=== PATIENT | female | born 1990 | race Caucasian/White ===

== ENCOUNTER → 2023-09-21 13:57 | Outpatient (REF) | payer OTHER, SELFPAY | LOC: PNTC 13:57 | PROVIDERS: ATTENDING PHYSICIAN Obstetrics & Gynecology | DX: O24.419 Gestational diabetes mellitus in pregnancy, unspecified control (principal) | CPT/HCPCS: 76816 ==

== ENCOUNTER → 2023-10-04 11:52 | Outpatient (REF) | payer OTHER, SELFPAY ==
--- NOTE | 2023-10-04 12:07 | PN.DIAED06 ---
Meal Plan - Gestational
- Breakfast
Gestational Diabetes Meal Plan Name: 1800 calories
Breakfast - Total Carbohydrate (grams): 30
Breakfast - Starch Carbohydrate: 1
Breakfast - Fruit Carbohydrate: 0
Breakfast - Milk Carbohydrate: 1
Breakfast - Nonstarchy Vegetables: Yes
Breakfast - Meat/Protein: 1
Breakfast - Fat: 2
- Morning Snack
Morning Snack - Total Carbohydrate (grams): 30
Morning Snack - Starch Carbohydrate: 1
Morning Snack - Fruit Carbohydrate: 0
Morning Snack - Milk Carbohydrate: 1
Morning Snack - Nonstarchy Vegetables: Yes
Morning Snack - Meat/Protein: 0.5
Morning Snack - Fat: 0
- Lunch
Lunch - Total Carbohydrate (grams): 45
Lunch - Starch Carbohydrate: 2
Lunch - Fruit Carbohydrate: 1
Lunch - Milk Carbohydrate: 0
Lunch - Nonstarchy Vegetables: Yes
Lunch - Meat/Protein: 2
Lunch - Fat: 1
- Afternoon Snack
Afternoon Snack - Total Carbohydrate (grams): 30
Afternoon Snack - Starch Carbohydrate: 1
Afternoon Snack - Fruit Carbohydrate: 1
Afternoon Snack - Milk Carbohydrate: 0
Afternoon Snack - Nonstarchy Vegetables: Yes
Afternoon Snack - Meat/Protein: 1
Afternoon Snack - Fat: 0
- Dinner
Dinner - Total Carbohydrate (grams): 45
Dinner - Starch Carbohydrate: 2
Dinner - Fruit Carbohydrate: 0
Dinner - Milk Carbohydrate: 1
Dinner - Nonstarchy Vegetables: Yes
Dinner - Meat/Protein: 2
Dinner - Fat: 2
- Evening Snack
Evening Snack - Total Carbohydrate (grams): 30
Evening Snack - Starch Carbohydrate: 1
Evening Snack - Fruit Carbohydrate: 0
Evening Snack - Milk Carbohydrate: 1
Evening Snack - Nonstarchy Vegetables: Yes
Evening Snack - Meat/Protein: 1
Evening Snack - Fat: 1
--- NOTE | 2023-10-04 13:38 | PN.DIAED02 ---
Referral
DSME Class Series Code: GDM
Referred For: Gestational Diabetes Self-Management Training, Management of Diabetes During , Self-Blood Glucose Monitoring
PHI Release Authorization Form Signed: Yes
Patient Problems:
Current Active Problems
Problem Status Onset
Gestational diabetes mellitus in , unspecified control ~09/07/23
Demographic
(1) Gestational diabetes mellitus in , unspecified control
Status: Acute Onset Date: ~09/07/23
Qualifiers:
Gestational diabetes mellitus control: diet-controlled Trimester: third trimester Qualified Code(s): O24.410 - Gestational diabetes mellitus in , diet controlled
Code(s): O24.419 - Gestational diabetes mellitus in , unspecified control
Patient's primary language-: Citizen Of [place]
Education: College degree
Glycemic Control
- Blood Glucose Monitoring Assessment
Date: 10/04/23
Blood glucose monitoring at home: Yes (72)
Monitor Brands: OneTouch
Frequency: 4x per day
Time: fasting, after breakfast, after lunch, after dinner
Patient uses Alternate Site Testing: No
Self-Care
- Tobacco Usage
Do you now, or have you ever smoked?: Never smoked
- Alcohol & Drugs Usage
Drinks Alcohol: No
Uses Recreational Drugs: No
- Physical Activity
Activity Types: walking
Duration: 21-30 minutes
Frequency: 3-5x per week
Intensity: Easy
Care Plan
- Education Needs
Patient Education Needs: Monitoring, Physical activity, Nutritional management, Preconception care//gestational diabetes management
Recommended Diabetes Training Program based on assessment: Gestational Diabetes Management
- Plan of Care
Plan of Care:
Met with Ms. Cleveland today, , currently at 34 weeks of gestation, here today for medical nutrition therapy.
Explained glucose metabolism in body and what occurs during to cause increase blood sugar. Discussed importance of keeping BS well controlled to avoid complications to the baby during and after (macrosomia, hypoglycemia). Explained
to Sumi that she is at increased risk of developing T2DM in the future. Sumi states that she has been more cognisant of what she eats since dx of GDM.
Provided Sumi with a glucose monitor-OneTouch. Reviewed proper testing technique, testing sites and testing pattern. She is aware to test FBS and 2 hr pp each meal. Expected results for FBS <95 mg/dl and 2 hr pp <120 mg/dl.
Provided with 1800 adilene GDM meal plan. She was educated on how to read a nutritional fact label and look at total CHO in relation to serving size. No fruit or fruit juice until noontime. Provided with handout on snacks as well as 'Choose Your Foods'
booklet. A Log sheet was provided for her to record results, she will send her 4 day meal log with all her FBG and 2hr Post prandial glucose numbers to this office for review. In addition, she will send all her glucose readings to Lisha at [place]
every Tuesday. She was encouraged to keep a regular activity schedule and will reach out should she require insulin.
A script for OneTouch test strips and Lancets was sent to [facility] in [place].
== END ==
LOC: DES 11:52
PROVIDERS: ATTENDING PHYSICIAN Obstetrics & Gynecology; FAMILY PHYSICIAN Family Medicine
DX: O24.419 Gestational diabetes mellitus in pregnancy, unspecified control (principal)
CPT/HCPCS: 99078

== ENCOUNTER → 2023-10-18 12:08 | Outpatient (REF) | payer OTHER, SELFPAY | LOC: PNTC 12:08 | PROVIDERS: ATTENDING PHYSICIAN Obstetrics & Gynecology | DX: O24.419 Gestational diabetes mellitus in pregnancy, unspecified control (principal) | CPT/HCPCS: 76816 ==

== ENCOUNTER → 2023-11-17 12:09 | Outpatient (REF) | payer OTHER, SELFPAY | LOC: PNTC 12:09 | PROVIDERS: ATTENDING PHYSICIAN Obstetrics & Gynecology | DX: O24.419 Gestational diabetes mellitus in pregnancy, unspecified control (principal) | CPT/HCPCS: 76816 ==

== ENCOUNTER 2023-11-21 03:02 | Inpatient (IN) | payer OTHER, SELFPAY ==
[2023-11-21 03:44] LABS: Glucose - Point of Care 91 mg/dl (70-99)
[2023-11-21 03:59] LABS: % Basophils 0.4 % (0-2); % Eosinophils 0.3 % (0-6); % Immature Granulocytes 0.4 % (0-0.5); % Monocytes 6.7 % (1.7-9.3); % Neutrophils 65.2 % (42.2-75.2); Absolute Lymphocytes 2.6 10^3/uL (1.2-3.4); Absolute Monocytes 0.6 10^3/uL (0.1-0.6); Absolute Neutrophils 6.3 10^3/uL (1.4-6.5); Hematocrit 38.5 % (37.0-47.0); Hemoglobin 13.6 g/dL (12.0-16.0); Mean Corp Hgb Conc. 35.3 g/dL (33.0-37.0); Mean Corpuscular Hgb 33.3 pg (27.0-31.0); Mean Corpuscular Volume 94.4 fL (81.0-99.0); Mean Platelet Volume 10.6 fL (7.4-10.4); Nucleated Red Blood Cells % 0 %; Platelet Count 147 10^3/uL (130-400); Red Blood Cell Count 4.08 10^6/uL (4.20-5.40); Red Cell Dist. Width 13.3 % (11.5-14.5); White Blood Cell Count 9.6 10^3/uL (4.8-10.8)
[2023-11-21 04:00] VITALS: BP 118/73; BMI 20.5
[2023-11-21] MEDS: LR 1000 IV ×2 (09:00→11:50)
[2023-11-21] MEDS: FENTANYL/BUPIVACAINE 100 EPIDURAL (09:38)
[2023-11-21] MEDS: SUBLIMAZE 100 MCG EPIDURAL (09:38)
[2023-11-21 11:05] LABS: Glucose - Point of Care 84 mg/dl (70-99)
[2023-11-21 15:56] LABS: Glucose - Point of Care 85 mg/dl (70-99)
[2023-11-21] MEDS: PITOCIN 30 UNITS/NSS 500 ML IV (17:14)
[2023-11-21] MEDS: MOTRIN 600 MG PO (22:15)
[2023-11-22] MEDS: TYLENOL 650 MG PO ×2 (04:03→16:12)
[2023-11-22] MEDS: SENOKOT-S 1 TABLET PO (04:03)
[2023-11-22] MEDS: MOTRIN 600 MG PO ×2 (06:01→19:37)
[2023-11-22 06:45] LABS: Hematocrit 33.3 % (37.0-47.0); Hemoglobin 11.7 g/dL (12.0-16.0)
[2023-11-22 13:58] LABS: Syphilis/T. pallidum Ab Reflex Negative (Negative)
[2023-11-23] MEDS: SENOKOT-S 1 TABLET PO (08:21)
[2023-11-23] MEDS: TYLENOL 650 MG PO (08:21)
== END 2023-11-23 13:10 | disposition home or self-care (01) | DRG 768 ==
LOC: LDRP 03:02
PROVIDERS: Obstetrics & Gynecology; ADMITTING PHYSICIAN Obstetrics & Gynecology
PROC: 10E0XZZ Delivery of Products of Conception, External Approach (ICD-10-PCS; 2023-11-21)
PROC: 0DQR0ZZ Repair Anal Sphincter, Open Approach (ICD-10-PCS; 2023-11-21)
DX: O43.193 Other malformation of placenta, third trimester (principal); Z37.0 Single live birth; O70.20 Third degree perineal laceration during delivery, unspecified; O24.420 Gestational diabetes mellitus in childbirth, diet controlled; Z3A.39 39 weeks gestation of pregnancy
CPT/HCPCS: 82962; 85014; 85018; 85025; 86780; 86850; 86900; 86901